=== PATIENT | male | born 1990 | race African-American/Black ===

== ENCOUNTER 2020-05-18 03:48 | Emergency (ER) | payer MEDICAID ==
[~2020-05-18] VITALS: Ht 177.8 cm; Wt 100.0 kg
[2020-05-18 03:56] VITALS: BP 149/99
== END 2020-05-18 05:17 | disposition left against medical advice (07) ==
LOC: ER 03:48
DX: Z53.21 Procedure and treatment not carried out due to patient leaving prior to being seen by health care provider (principal)

== ENCOUNTER 2023-09-24 08:01 | Emergency (ER) | payer MEDICAID ==
[~2023-09-24] VITALS: Ht 180.3 cm; Wt 136.0 kg
[2023-09-24 08:13] VITALS: TEMP 98.5; O2SAT 97
[2023-09-24] MEDS ORDERED: KETOROLAC 15MG/ML VIAL IM ONE (09:00)
[2023-09-24 11:15] VITALS: BP 143/96; PULSE 75; RESP 16
[2023-09-24] MEDS: KETOROLAC 15MG/ML VIAL IM NR (11:15)
[2023-09-24] MEDS ORDERED: NAPR-1176 MT (12:36)
== END 2023-09-24 13:19 | disposition home or self-care (01) ==
LOC: ER 08:19
DX: M54.9 Dorsalgia, unspecified (principal); V98.8XXA Other specified transport accidents, initial encounter; Y93.89 Activity, other specified; Y92.89 Other specified places as the place of occurrence of the external cause; Y99.8 Other external cause status
CPT/HCPCS: 99283; 96372; J1885